=== PATIENT | female | born 1950 ===

== ENCOUNTER → 2021-06-04 08:54 | Outpatient (POV) | payer MEDICARE, SELFPAY ==
[2021-06-04 09:17] VITALS: BP 190/87; PULSE 72; RESP 18; O2SAT 98; BMI 32.9
--- NOTE | 2021-06-05 09:32 | [facility].PMCON ---
Assessment and Plan (1) Shingles Status: Acute Category: Medical Code(s): B02.9 - Zoster without complications (2) Postherpetic neuralgia Status: Acute Category: Medical Code(s): B02.29 - Other postherpetic nervous system involvement - Assessment and plan all Dx Assessment and Plan for all problems:: Patient was consulted today for postherpetic neuralgia. She has completed her antiviral regimen. She was started on gabapentin 100 mg 1 tablet p.o. 3 times daily. We did initially start the patient on Lyrica today, but patient did contact the clinic and was concerned with starting the medication due to side effects. The patient is in the process of undergoing a lumpectomy right breast due to stage I breast cancer. This is scheduled first week. She does not want to proceed with any further injective therapy at this time due to scheduled lumpectomy. Patient is in significant pain. She and I did discuss an increase in her gabapentin to see if this helps with her pain. She would like to try this. We will start the patient on gabapentin 300 mg 1 tablet p.o. 3 times daily. She will start the medication once daily as tolerable. She can increase to 2 times daily progressing to 3 times daily if she is able to tolerate the medication. She is not interested in injective therapy until she completes her lumpectomy and any postoperative care. She will contact the clinic and return to the clinic for injective therapy upon completion of lumpectomy. Patient was contacted via telephone after visit in clinic to see if medication will was effective. At the time of phone call, she had not had any changes in symptoms. She will increase to 3 times daily to see if this does help with her pain. Patient did not feel comfortable starting Lyrica due to side effects that she did read online. We will contact the patient in 1 week to see if medication is helping. Risks and benefits of the medication have been explained in detail to the patient. If side effects do present with the medication, patient has been advised to stop the medication immediately and call the clinic. The patient has been advised to consult with his/her primary care provider and pharmacist regarding drug-drug interaction of medications currently prescribed. HPI - Data of Consult Patient: new to practice (.) Consult date: 06/04/21 Requesting Physician: Coby Gooslin, PRECISION MACHINE OPERATOR - Consult Narrative Reason for consult: shingles, post herpetic neuralgia History of present illness: Ms. Rasmussen is a 70 year old female who presents today for complaints of electrical shocking type pain to right breast area, right flank, and to right mid back area. She reports to have been hospitalized approximately 4 weeks ago for sepsis. She underwent three rounds of antibiotic therapy for a UTI, with reported sepsis after the second round. While hospitalized, she was suppose to undergo a lumpectomy due to Stage I breast cancer. She does state that during a right breast biopsy, she developed atrial fibrillation, thus being placed on eliquis after. She is still on anitcoagulation therapy. Hospitalized, she developed a rash under right breast. She was initially started on acyclovir, but taken off the medication before completing the therapy because providers did not feel her rash was shingles. After discharge from the hospital, the rash worsened with severe pain. She did see a assistant vice president who did inform her that the rash was shingles. She was once again started an antiviral, which she has since completed. She was ordered gabapentin 100 mg po tid. She got minimal relief with the medication. She rates her pain a 10/10. She is unable to tolerate clothing touching the area. She is very tearful today. She is scheduled to undergo lumpectomy June 21 and will not be able to have epidural prior to the procedure. CC: Coby Ortiz APRN [facility] History I have reviewed the patient's past
== END ==
PROVIDERS: Visit Provider Clinical Nurse Specialist Family Health
DX: B02.23 Postherpetic polyneuropathy (principal)
CPT/HCPCS: 99202; G0463